=== PATIENT | female | born 1945 | race Caucasian/White ===

== ENCOUNTER 2020-03-17 09:57 | Day surgery (SDC) | payer OTHER ==
[~2020-03-17] VITALS: Ht 160 cm; Wt 72.7 kg
[~2020-03-17 09:57] MED LIST: ACET325 PO; ALEVE220 MG PO; ATORVASTATIN CA20 MG PO; Aspir 8181 MG PO; CHOL10002 PO; CHOLESTEROL MED; CLIN300 PO; CLOB.05TC TP; ENOX40I SC; EUTHYROX112 MC1 PO; GLUC500 PO; GLUCHON PO; HYDACE5325 PO; K2 PLUS D3 TAB1 EACH PO; LEVSOD100 PO; LOSARTAN POTASS25 M2 PO; MECL25 PO; MELO7.5 PO; METAMUCIL POWD575 G1 PO; METO50ER PO; METOPROLOL SUCC ER 5; MIRALAX17 G1 PO; NITROGLYCERIN0.4 M3; Nitroglycerin1 EAC3 TD; OTC PAIN RELIEVER; POLY500 PO; PRED20 PO; Prednisone20 MG PO; SIMV5 PO; SYNTHYROID; VITAMIN D250 MCG PO; Zithromax250 MG PO
[2020-03-17 11:06] LABS: BASOPHILS ABSOLUTE AUTO 0.04 K/mm3 (0.00-0.23); BASOPHILS PERCENT AUTO 1 % (0-2); EOSINOPHILS PERCENT AUTO 2 % (0-6); Hematocrit 43.3 % (33.0-51.0); Hemoglobin 13.9 g/dL (11.5-16.0); IMMATURE GRAN ABSOLUTE AUTO 0.01 K/mm3 (0.00-0.10); IMMATURE GRAN PERCENT AUTO 0 % (0-1); LYMPHOCYTES ABSOLUTE AUTO 1.51 K/mm3 (0.84-5.20); LYMPHOCYTES PERCENT AUTO 25 % (21-46); MONOCYTES ABSOLUTE AUTO 0.41 K/mm3 (0.16-1.47); MONOCYTES PERCENT AUTO 7 % (4-13); Mean Corpuscular HGB 30.3 pg (26.0-34.0); Mean Corpuscular HGB Conc 32.1 g/dL (31.5-36.5); Mean Corpuscular Volume 95 fL (80-100); Mean Platelet Volume 10.5 fL (9.1-12.4); NEUTROPHILS ABSOLUTE AUTO 4.02 K/mm3 (1.96-9.15); NEUTROPHILS PERCENT AUTO 66 % (41-73); Platelet Count 164 K/mm3 (150-400); RDW Coefficient Variation 12.2 % (11.7-14.2); RDW Standard Deviation 42.4 fL (35.1-46.3); Red Blood Cell Count 4.58 M/mm3 (3.80-5.20); White Blood Cell Count 6.09 K/mm3 (4.00-11.30)
[2020-03-17 11:12] LABS: International Normalized Ratio 1.02; Prothrombin Time Results 10.9 Sec (9.7-11.5)
[2020-03-17 11:13] LABS: Anion Gap 8 mmol/L (6-16); Blood Urea Nitrogen 14 mg/dL (8-24); Bun/Creatinine Ratio 16.4 (12.0-20.0); CO2, Blood 29 mmol/L (21-32); Calcium, Blood 8.4 mg/dL (8.5-10.1); Chloride, Blood 105 mmol/L (98-108); Creatinine, Blood 0.86 mg/dL (0.40-1.00); Glomerular Filtration Rate >60 (60-); Glucose, Blood 94 mg/dL (70-99); Potassium, Blood 3.4 mmol/L (3.5-5.5); Sodium, Blood 142 mmol/L (136-145)
--- NOTE | 2020-03-17 12:20 | NUR ---
PT RETURNED TO RECOVERY ROOM IN RECLINER. RIGHT RADIAL TR BAND SITE WITH WRIST BOARD SOFT NON-TENDER WITH NO HEMATOMA AND NO PULSATILE BLEEDING. PT DENIES CP. CALL LIGHT IN REACH.
--- NOTE | 2020-03-17 15:27 | NUR ---
DISCHARGE PT REMAINED A&ODURING RECOVERY AND DENIED ANY PAIN. R RADIAL SITE REMAINS CDI-NO HMEATOMA. R RADIAL SITE TR BAND REMOVED AND REPLACED WITH A CLOTH DOT AND WHITE BOARD. PT ABLE TO DRESS SELF. PT AMBULATED TO RESTROOM WITH STEADY GAIT. DISCHARGE PAPERWORK GONE OVER WITH PT. PT VERBALLY STATED THE UNDERSTANDING OF THE DISCHARGE EDUCATION AND DENIED ANY QUESTIONS AT THIS TIME. PT WHELLED OUT WITH BELONGINGS BY THIS NURSE.
== END 2020-03-17 13:15 | disposition home or self-care (01) ==
LOC: MHTC 09:57
PROVIDERS: Internal Medicine Cardiovascular Disease
PROC: B2111ZZ Fluoroscopy of Multiple Coronary Arteries using Low Osmolar Contrast (ICD-10-PCS; principal; 2020-03-17)
PROC: 4A023N7 Measurement of Cardiac Sampling and Pressure, Left Heart, Percutaneous Approach (ICD-10-PCS; principal; 2020-03-17)
DX: R07.89 Other chest pain (principal); Q24.5 Malformation of coronary vessels; I25.10 Atherosclerotic heart disease of native coronary artery without angina pectoris; I10 Essential (primary) hypertension; E78.5 Hyperlipidemia, unspecified; Z87.891 Personal history of nicotine dependence; Z88.1 Allergy status to other antibiotic agents; Z88.6 Allergy status to analgesic agent
CPT/HCPCS: 76937; 80048; 85025; 85610; 93458; 99152; 99153; A9270; C1769; C1894; J1644; J2250; J3010; J7030; Q9967

== ENCOUNTER 2020-08-20 09:57 | Day surgery (SDC) | payer OTHER | END 2020-08-20 23:25 | disposition home or self-care (01) | LOC: MOI MAM 09:57 | DX: D05.12 Intraductal carcinoma in situ of left breast (principal); Z88.1 Allergy status to other antibiotic agents; Z88.6 Allergy status to analgesic agent; Z79.899 Other long term (current) drug therapy | CPT/HCPCS: 19081; 88305; 88360 ==

== ENCOUNTER 2020-10-08 08:41 | Day surgery (SDC) | payer OTHER ==
[~2020-10-08 08:41] MED LIST changes: -METAMUCIL POWD575 G1 PO; +METAMUCIL POWD575 GM; -NITROGLYCERIN0.4 M3; +NITROGLYCERIN0.4 M3 SL; -Nitroglycerin1 EAC3 TD; +Nitroglycerin1 EAC3 TOP; +VITAMIN D310 MC4 PO
== END 2020-10-08 22:46 | disposition home or self-care (01) ==
LOC: MOI MAM 08:41
DX: D05.12 Intraductal carcinoma in situ of left breast (principal); E03.9 Hypothyroidism, unspecified; I12.9 Hypertensive chronic kidney disease with stage 1 through stage 4 chronic kidney disease, or unspecified chronic kidney disease; N18.30 Chronic kidney disease, stage 3 unspecified; E78.5 Hyperlipidemia, unspecified; R73.03 Prediabetes; Z87.891 Personal history of nicotine dependence; Z79.899 Other long term (current) drug therapy; Z88.1 Allergy status to other antibiotic agents; Z88.6 Allergy status to analgesic agent
CPT/HCPCS: 19281

== ENCOUNTER 2020-10-24 07:55 | Day surgery (SDC) | payer OTHER ==
[~2020-10-24] VITALS: Ht 165.1 cm; Wt 71.2 kg
--- NOTE | 2020-10-24 09:37 | NUR ---
Patient up to Ambulate independently. Gait steady. Francisco Paws warming gown applied. Surgical site prepped with 2% Chlorhexidine cloth wipe. History, Chart, Medications and Allergies reviewed before start of procedure.Lungs clear T/O to Auscultation. Patient confirms NPO status and agrees with scheduled surgery. Pre-Op teaching done. Pt verbalizes understanding. Patient reports completing Chlorhexadine shower X2 prior to admission to hospital.
--- NOTE | 2020-10-24 12:01 | NUR ---
ASSUMED CARE A 1130 SHE WAS EATING CRACKERS AND DRINKING WATER AT THIS TIME DENIES PAIN OR NAUSEA VERBALIZED UNDERSTANDING OF D/C ORDERS DRSG CDI BREAST BINDER IN PLACE DRESSED HER SELF FOR DISCHARGE MOVED FROM [facility] TO WHEELCHAIR WITH OUT PROBLEM JOANNA HER NEPHEW IS ON HIS WAY HERE TO GIVE HER A RIDE HOME PT IS WAITING WITH "VANNA" AT SURGICAL FLOOR DESK IN WHEELCHAIR
== END 2020-10-24 23:25 | disposition home or self-care (01) ==
LOC: ORSCMMR 07:55 → ORD 11:00 → ORSCMMR 23:25
PROVIDERS: Surgery
PROC: 0HBU0ZZ Excision of Left Breast, Open Approach (ICD-10-PCS; principal; 2020-10-24 09:30)
DX: D05.12 Intraductal carcinoma in situ of left breast (principal); I10 Essential (primary) hypertension; I25.10 Atherosclerotic heart disease of native coronary artery without angina pectoris; E03.9 Hypothyroidism, unspecified; E78.00 Pure hypercholesterolemia, unspecified; Z87.891 Personal history of nicotine dependence; Z79.899 Other long term (current) drug therapy
CPT/HCPCS: 88307; J0690; J1100; J2250; J2405; J2704; J3010; J7120

== ENCOUNTER 2021-02-06 10:01 | Day surgery (SDC) | payer OTHER ==
[~2021-02-06] VITALS: Ht 167.6 cm; Wt 69.2 kg
--- NOTE | 2021-02-06 10:55 | NUR ---
02/06/21 1055 ANSON HORNE ONE ATTEMPT BY VAIBHAV IN RH VALVE ONE ATTEMPT BY RN IN RH VALVE ONE SUCCESSFUL BY RN IN RAC PT TOW
== END 2021-02-06 12:30 | disposition home or self-care (01) ==
LOC: ORSCSDS 10:01
PROVIDERS: Internal Medicine Gastroenterology
PROC: 0DJD8ZZ Inspection of Lower Intestinal Tract, Via Natural or Artificial Opening Endoscopic (ICD-10-PCS; principal; 2021-02-06 11:15)
DX: Z12.11 Encounter for screening for malignant neoplasm of colon (principal); Z86.010 Personal history of colon polyps; K57.30 Diverticulosis of large intestine without perforation or abscess without bleeding; I10 Essential (primary) hypertension; Z87.891 Personal history of nicotine dependence; Z79.899 Other long term (current) drug therapy
CPT/HCPCS: J2704; J7120

== ENCOUNTER → 2022-12-30 | Outpatient (CLI) | payer OTHER ==
[~2022-12-30] MED LIST changes: +LETROZOLE2.5 M3 PO; +ONDA4ODT MM
== END | disposition home or self-care (01) ==
LOC: LAB 17:39 → LAB SHORT 17:39
DX: R30.0 Dysuria (principal)
CPT/HCPCS: 87077; 87086; 87186

== ENCOUNTER → 2024-10-27 | Outpatient (CLI) | payer OTHER | LOC: LAB 13:45 → LAB SHORT 13:45 | DX: N39.0 Urinary tract infection, site not specified (principal) | CPT/HCPCS: 87077; 87086; 87186 ==